=== PATIENT | male | born 1995 | race Two or more races ===

== ENCOUNTER 2018-06-21 08:14 | Emergency (ER) | payer OTHER ==
[~2018-06-21] VITALS: Ht 170.2 cm; Wt 78.9 kg
[2018-06-21 08:18] VITALS: BP 129/87; Ht 170.2 cm; Wt 78.9 kg
== END 2018-06-21 08:50 | disposition home or self-care (01) ==
LOC: ED 08:14
DX: J03.90 Acute tonsillitis, unspecified (principal); H66.92 Otitis media, unspecified, left ear

== ENCOUNTER 2018-08-06 06:57 | Emergency (ER) | payer OTHER ==
[~2018-08-06] VITALS: Ht 170.2 cm; Wt 75.7 kg
[2018-08-06 06:59] VITALS: BP 134/75; Ht 170.2 cm; Wt 75.7 kg
== END 2018-08-06 07:35 | disposition home or self-care (01) ==
LOC: ED 06:57
DX: J02.9 Acute pharyngitis, unspecified (principal)